=== PATIENT | female | born 2000 | race Caucasian/White ===

== ENCOUNTER 2019-01-01 12:52 | Observation (INO) ==
[2019-01-01] MEDS ORDERED: SALINE LOCK IV FLUID XX ONE (13:35)
[2019-01-01] MEDS ORDERED: ZOFRAN IV PRN (13:35)
[2019-01-01] MEDS ORDERED: TYLENOL PO PRN (13:35)
[2019-01-01] MEDS ORDERED: CHLORASEPTIC SPRAY MT PRN (13:46)
[2019-01-01] MEDS: NS + KCL 20 MEQ 1,000 ML IV SCH (15:19)
[2019-01-01] MEDS: ROCEPHIN 1 GM in NS 50 ML IV SCH (15:19)
[2019-01-01] MEDS: NORCO-5 PO PRN ×2 (16:36→20:38)
--- NOTE | 2019-01-01 22:51 | HISTORY AND PHYSICAL ---
CHIEF COMPLAINT: Nausea, vomiting and sore throat. HISTORY OF PRESENT ILLNESS: The patient is an 17-year-old white female followed in my medical practice who comes in with a 3-day history of severe sore throat, increasing over this past 72 hours. She has had body aches, fever, and over the past 18 to 24 hours developed pronounced nausea and vomiting. She was seen in the office yesterday, and rapid strep was negative and white count was 18,000 with a left shift and mono screen was negative and last evening we called in Keflex at 500 mg p.o. q.6 hours. She says she has taken 3 of those pills, and it started again yesterday evening. Throat culture is in progress, and I have spoken with the watch technician, and it is not growing out group A strep but growing out hemolytic strep consistent with Strep pyogenes, but patient is having pronounced worsening sore throat, nausea and vomiting and prostration. MEDICATIONS PRIOR TO ADMISSION: Keflex. ALLERGIES: Penicillin. PAST MEDICAL HISTORY: Mild obesity with prior history of treatment with Adipex at low dose. PAST SURGICAL HISTORY: Negative. FAMILY HISTORY: Notable for breast cancer in her mother with negative BRCA testing in the mother. Mother had breast cancer at age 28. Otherwise, family history negative. SOCIAL HISTORY: The patient lives in [place]. Parents are . She is a nonsmoker, nondrinker. REVIEW OF SYSTEMS: Negative except as above. PHYSICAL EXAMINATION: VITAL SIGNS: Weight 138, which is stable. Height 4 foot 10 inches, pulse 130, BMI 30, temperature 100.3 degrees orally. GENERAL: Young white female in moderate distress with sore throat. SKIN: No rashes. HEENT: NC/AT. PERRL. EOMI. Sclerae clear. TMs normal. OP: Tonsils 3+ with pronounced white exudate bilateral tonsil. NECK: No major cervical LA. No TMG. CARDIOVASCULAR: RRR without murmur. LUNGS: CTA. ABDOMEN: Soft, protuberant. No mass or organomegaly. No rebound or guarding. EXTREMITIES: No edema. BREASTS/PELVIC/RECTAL: Deferred. NEUROLOGIC: Cranial nerves 2 through 12 are intact. LABORATORY DATA: White count was repeated today and shows elevation in white count from 18,000 yesterday to 26,000 today with again left shift. [place] screen again negative. EBV titer and CMV titer were obtained, results pending. CMP largely unremarkable. ASSESSMENT: 1. Pharyngitis severe with probable Streptococcus pyogenes. 2. Nausea and vomiting. 3. Pronounced leukocytosis. PLAN: At this point as she looks quite ill, we will admit the patient for 23-hour observation, hydrate her well with normal saline with potassium supplementation. We will give her Chloraseptic, Tylenol and Dysart for pain, start her on IV Rocephin 1 g IV q.12 hours. Blood cultures x2 will be obtained prior to administration of this antibiotic, and we will monitor her leukocytosis. If that seems to be coming down with the antibiotic treatment, we will likely proceed with some low-dose steroids to see if that will help her throat with possible discharge as early as tomorrow. We will await the final results on the throat culture obtained through the office on 12/31/2018. cc: Ervin Acuña MD
[2019-01-02] MEDS: NS + KCL 20 MEQ 1,000 ML IV SCH ×4 (00:37→18:03)
[2019-01-02] MEDS: ROCEPHIN 1 GM in NS 50 ML IV SCH ×2 (01:30→13:11)
[2019-01-02] MEDS: NORCO-5 PO PRN (04:32)
[2019-01-02 08:14] LABS: BASO# 0.02 X1000 (0.0-0.2); BASO% 0.1 % (0.0-0.8); EOS# 0.01 X1000 (0.0-0.7); EOS% 0.1 % (0.0-10.0); HEMATOCRIT 40.5 % (37.0-47.0); HEMOGLOBIN 13.9 g/dL (12.0-16.0); IMM GRAN# 0.07 X1000 (0.0-0.04); IMM GRAN% 0.4 % (0.0-0.5); LYMPH% 13.3 % (20.5-51.1); MCH 28.9 PG (27-31); MCHC 34.3 g/dL (33-37); MCV 84.2 FL (81-99); MONO# 1.78 X1000 (0.11-0.59); MONO% 10.3 % (1.7-9.3); MPV 9.5 FL (7.4-10.4); NEUT# 13.14 X1000 (1.4-6.5); NEUT% 75.8 % (42.2-75.2); PLT 215 X1000 (130-400); RBC 4.81 XMIL (4.2-5.4); RDW 13.4 % (11.5-14.5); WBC 17.32 X1000 (4.8-10.8)
[2019-01-02 08:50] LABS: AGAP 11; BUN 3 mg/dL (8-22); CALCIUM 8.8 mg/dL (8.8-10.2); CHLORIDE 102 mmol/L (98-107); COSMO 272; CREATININE 0.4 mg/dL (0.5-0.9); ESTIMATED GFR > 60; GLUCOSE 88 mg/dL (70-104); POTASSIUM 3.8 mmol/L (3.5-5.1); SODIUM 138 mmol/L (136-145); TCO2 25 mmol/L (25-35)
[2019-01-02] MEDS: SOLU-MEDROL IV SCH ×2 (09:58→16:03)
[2019-01-02] MEDS ORDERED: MBX SOLUTION MT PRN (13:16)
[2019-01-02 19:32] VITALS: BP 142/90
--- NOTE | 2019-01-02 19:45 | PROGRESS NOTE ---
DATE: 01/02/2019 SUBJECTIVE: The patient is still not feeling well this morning, but today after receiving Solu- Medrol 60 mg IV q.8 hours she has begun to feel much better. Throat is better and she is able to swallow. She was able to eat [employer] for supper without difficulty. T-max was 99.8 degrees at midnight last night. She has been afebrile since then. OBJECTIVE: Vital signs stable. OP still quite red. Tonsils 3+. Slightly less exudate. Neck: No LA.CV: RRR. Lungs CTA. Abdomen nontender. Extremities: No edema, calf tenderness or cords. Neurologic: Cranial nerves 2-12 are intact. No focal deficits. LABORATORY DATA: White count today is down from a maximum of 26,000 to 17.3, hemoglobin 13.9, platelets 215,000. BMP is normal. CMV titer is negative. EBV titer shows evidence of old past infection. Nothing new/acute. Blood cultures x2 remain negative. Throat culture done through the office on 12/31 is negative after all. ASSESSMENT: 1. Pharyngitis, rule out bacterial versus viral. 2. Nausea and vomiting, resolved. 3. Pronounced leukocytosis, trending downward. PLAN: We had started the IV steroids and that seemed to help a great deal. We were hesitant to start that due to marked elevation in her white count and trend upward, but now that had come down, we were able to start it. We kept her on IV Rocephin 1 g q.12 hours. We will resume Keflex at home at 500 mg q.6 hours, and we will give her prednisone 40 mg daily for 5 days, [place] 5 for pain, Chloraseptic, Tylenol if required. Rest, fluids. Recheck in the office in a week. Discharge home. cc: Ervin Acuña MD
== END 2019-01-02 20:00 | disposition home or self-care (01) ==
LOC: DIRADM → 1N 12:52
PROVIDERS: ADMIT Family Medicine; ATTEND Family Medicine

== ENCOUNTER 2019-06-23 15:42 | Observation (INO) ==
[2019-06-23] MEDS ORDERED: SALINE LOCK IV FLUID XX ONE (15:46)
[2019-06-23] MEDS ORDERED: NS 500 ML IV ONE (15:53)
[2019-06-23] MEDS: TYLENOL PO PRN (17:05)
[2019-06-23] MEDS: ZOFRAN IV PRN ×2 (17:06→21:39)
[2019-06-23 18:32] LABS: BASO% 0.8 % (0.0-0.8); HEMATOCRIT 40.8 % (37.0-47.0); HEMOGLOBIN 13.6 g/dL (12.0-16.0); IMM GRAN# 0.11 X1000 (0.0-0.04); IMM GRAN% 0.5 % (0.0-0.5); LYMPH# 1.64 X1000 (1.2-3.4); LYMPH% 6.9 % (20.5-51.1); MCHC 33.3 g/dL (33-37); MONO# 2.12 X1000 (0.11-0.59); MONO% 8.9 % (1.7-9.3); MPV 9.4 FL (7.4-10.4); NEUT% 82.9 % (42.2-75.2); PLT 215 X1000 (130-400); RBC 4.86 XMIL (4.2-5.4); RDW 13.2 % (11.5-14.5); WBC 23.77 X1000 (4.8-10.8)
--- NOTE | 2019-06-23 18:46 | HISTORY AND PHYSICAL ---
CHIEF COMPLAINT: Nausea and vomiting. HPI: The patient is 18-year-old white female followed in my medical practice. She comes in with nausea and vomiting started late in the evening on 06/21/2019. She has had some body aches. Denies dysuria. No diarrhea. Has vomited about 10 times in all. She says she got a respite from her symptoms and yesterday felt pretty good and was able to "go out," she has had mild sore throat but she has had problems with chronic tonsillitis over the last year or 2 and has been followed by Dr. Maurer in that regard with plans for surgical tonsillectomy in the next few days. She denies any cough. She has had some abdominal soreness all across her abdomen low to mid aspect. She denies dysuria. MEDICATIONS PRIOR TO ADMISSION: Tylenol. ALLERGIES: Penicillin. PAST MEDICAL HISTORY: 1. Frequent tonsillitis/chronic tonsillitis. 2. Nummular eczema. PAST SURGICAL HISTORY: Negative. FAMILY HISTORY: Notable for breast cancer in her mother at age 28 with mother being BRAC negative. SOCIAL HISTORY: The patient lives in [place], she is single, does not smoke, does not drink. Has 1 sibling. ROS: As above. PHYSICAL EXAMINATION: Weight 151, height 4 feet 10 inches, temperature 103.1 degrees, BMI 30. GENERAL: Mildly obese white female holding an emesis basin is ill-appearing. SKIN: No rashes. HEENT: NCAT. PERRL. EOMI. Sclerae anicteric. OP tonsils 2 to 3+ with mild exudate right greater than left. TMs clear. NECK: No major cervical LA. No TMG. CV: RRR without murmur. LUNGS: CTA. BACK: No CVA tenderness. ABDOMEN: Soft, active bowel sounds, mild tenderness right lower quadrant and suprapubic area. Minimal left lower quadrant tenderness, no mass ,no organomegaly, no rebound or guarding. Breasts, pelvic, rectal deferred. EXTREMITIES: No calf tenderness, cords or edema. NEURO: Cranial nerves 2-12 are intact. No focal deficits. Influenza testing for A and B in the office negative. UA trace leukocytes, negative blood, negative nitrite, 100 of protein, negative glucose, small bilirubin, trace ketones, specific gravity 1.015, pH greater than 9. ASSESSMENT: 1. Nausea and vomiting. 2. Lower abdominal pain. 3. Chronic tonsillitis. PLAN: We will admit the patient, give her IV hydration with saline bolus, Zofran for nausea and vomiting, Tylenol as needed for fever. Check CT abdomen and pelvis without contrast now. Check extensive labs to include rapid strep and throat culture, Monospot, CBC with differential, CMP, amylase, lipase, serum test, blood cultures x2, will culture the urine. Await studies. cc: Ervin Acuña MD MTDD
[2019-06-23 18:53] LABS: AGAP 15; ALB/GLOB RATIO 1.2; ALBUMIN 3.7 g/dL (3.5-5.0); ALKALINE PHOSPHATASE 65 U/L (32-104); AMYLASE 45 U/L (20-200); BUN 6 mg/dL (8-22); CALCIUM 8.6 mg/dL (8.8-10.2); CHLORIDE 101 mmol/L (98-107); COSMO 268; CREATININE 0.6 mg/dL (0.5-0.9); ESTIMATED GFR > 60; GLUCOSE 97 mg/dL (70-104); GOT 15 U/L (10-30); GPT 14 U/L (10-36); LIPASE 9 U/L (13-60); POTASSIUM 3.7 mmol/L (3.5-5.1); SODIUM 135 mmol/L (136-145); TCO2 19 mmol/L (25-35); TOTAL BILIRUBIN 0.52 mg/dL (0.20-1.00); TOTAL PROTEIN 6.8 g/dL (6.3-8.3)
[2019-06-23 18:58] LABS: BANDS 1 % (0-1); LYMPHS 8 % (21-51); MONO 2 % (1-9); SEGS 89 % (42-75)
--- NOTE | 2019-06-23 20:30 | Diag Imaging Result Doc PS360 ---
EXAM: CT ABDOMEN/PELVIS W/O CONTRAST 06/23/2019 HISTORY: lower abd pain/vomiting TECHNIQUE: This exam was performed using automated exposure control, adjustment of mA or kV according to patient size, and/or use of iterative reconstruction technique. COMMENT: There is no evidence of acute disease in the visualized portion of the chest. There are bilateral small calyceal stones none of which exceed 3 mm in size. There is no evidence of hydronephrosis. The urinary bladder is not distended. There is no evidence of ureterolithiasis. There is no evidence of bowel obstruction. There is some ileocolic adenopathy with nodes is much as 11 mm in greatest dimension. The appendix is less than 6 mm in diameter. There is a large amount of stool in the rectum. There is no evidence of free fluid. The regional skeleton is intact. IMPRESSION: Bilateral nephrolithiasis without evidence of obstructive uropathy. The possibility of mesenteric adenitis cannot be excluded. Mild constipation. Electronically signed by Diaz Marx 06/23/2019 8:28 PM
[2019-06-23] MEDS ORDERED: ZOSYN 3.375 GM in NS 50 ML IV SCH (21:00)
[2019-06-23] MEDS ORDERED: LEVAQUIN 750 MG/D5W 750 MG/150 ML IVPB IV SCH (21:15)
[2019-06-23] MEDS ORDERED: FLAGYL 500 MG/NS 500 MG/100 ML IVPB IV SCH (21:15)
[2019-06-24] MEDS: FLAGYL 500 MG/NS 500 MG/100 ML IVPB IV SCH ×2 (00:25→10:23)
[2019-06-24] MEDS ORDERED: PHENERGAN PR PRN (02:33)
[2019-06-24 07:52] LABS: BASO# 0.04 X1000 (0.0-0.2); BASO% 0.2 % (0.0-0.8); HEMATOCRIT 40.4 % (37.0-47.0); HEMOGLOBIN 13.4 g/dL (12.0-16.0); IMM GRAN# 0.11 X1000 (0.0-0.04); IMM GRAN% 0.5 % (0.0-0.5); LYMPH# 1.58 X1000 (1.2-3.4); LYMPH% 7.9 % (20.5-51.1); MCH 27.9 PG (27-31); MCHC 33.2 g/dL (33-37); MCV 84.2 FL (81-99); MONO# 1.78 X1000 (0.11-0.59); MONO% 8.9 % (1.7-9.3); MPV 9.5 FL (7.4-10.4); NEUT# 16.55 X1000 (1.4-6.5); NEUT% 82.5 % (42.2-75.2); PLT 191 X1000 (130-400); RDW 13.2 % (11.5-14.5); WBC 20.06 X1000 (4.8-10.8)
[2019-06-24] MEDS ORDERED: DILAUDID IV PRN (08:34)
[2019-06-24] MEDS ORDERED: PHENERGAN IV PRN (08:34)
[2019-06-24] MEDS ORDERED: SODIUM CHLORIDE 0.9% INJ PRN (08:34)
--- NOTE | 2019-06-24 09:21 | PROGRESS NOTE ---
DATE: 06/24/2019 SUBJECTIVE: The patient had more nausea and vomiting overnight. She did have a small bowel movement. She has had minimal diffuse tenderness of the abdomen, not severe. She has had sore throat prominently. She denies dysuria. OBJECTIVE: T-max 102.8 degrees, T-current 99 degrees, pulse 99, respirations 14, blood pressure 106/57, O2 saturation room air 99%. HEENT: OP: Tonsils 2 to 3+ with prominent white exudate, right greater than left. Neck: Mild to moderate cervical LA, right greater than left. CV: RRR without murmur. Lungs: CTA. Back: No CVA tenderness. Abdomen: Soft. Active bowel sounds. No point tenderness today. No mass or organomegaly. No rebound or guarding. Extremities: No calf tenderness, cords or edema. Neurologic: Cranial nerves 2-12 are intact without focal deficits. White count was 23.7 on admission, has declined to 20, hemoglobin 13.4, platelet 191,000, neutrophils 82, lymphocytes 7.9, monocytes 8.9, eosinophils 0. Rapid strep negative. [place] screen negative. CMP unremarkable. Serum test negative. Amylase and lipase normal. Blood cultures, urine culture, throat culture in progress. CT abdomen and pelvis without contrast reveals bilateral nephrolithiasis with no evidence of ureterolithiasis. No obstructive uropathy. Possibility of mesenteric adenitis. Mild constipation. ASSESSMENT: 1. Fever with leukocytosis thought likely related to #2. 2. Recurrent tonsillitis with several episodes over the past few months, followed by Dr. Maurer outpatient with plans for tonsillectomy later in the next 2 weeks which had been noted. 3. Pyuria per urinalysis in the office. Urine culture pending. This was a clean-catch specimen. 4. Pronounced nausea and vomiting. PLAN: Continue antiemetics. Will switch over to Phenergan as that was more effective than the Zofran. We will add Dilaudid for pain in the tonsillar area. Continue antibiotics that were added last evening in the form of Levaquin and Flagyl as she is allergic to penicillin. We will ask Dr. Maurer to consult on the case. Follow her cultures and follow the patient clinically. cc: Ervin Acuña MD
[2019-06-24 09:53] LABS: BANDS 10 % (0-1); LYMPHS 4 % (21-51); MONO 6 % (1-9); SEGS 80 % (42-75)
[2019-06-24] MEDS: TYLENOL PO PRN (10:23)
[2019-06-24 16:02] VITALS: BP 112/75
--- NOTE | 2019-06-24 18:14 | PROGRESS NOTE ---
DATE: 06/24/2019 SUBJECTIVE: Patient is feeling much better. She has had some sore throat. No nausea and vomiting. She has been tolerating the clear liquids well without difficulty. She is sitting up in bed with her hair fixed and looks much better this afternoon. She had seen Dr. Maurer and I spoke with him in detail. Fever down markedly. Abdomen nontender. Urine culture, throat culture, blood cultures negative so far. She has not had any fever during the day. ASSESSMENT: Tonsillitis. PLAN: Dr. Maurer feels like this is a viral tonsillitis and to treat it symptomatically. We will give her [place] 5 at home for pain as needed. She is to follow up with Dr. Maurer or Dr. Vinson in the next 1 to 2 weeks. She already has outpatient planned tonsillectomy to be done in [address] Maurer assures us that she does not need antibiotics at this point in time. We will follow the cultures to fruition. She will call in 48 hours to our office to make sure she gets the word on the cultures of the blood, urine and throat. cc: Ervin Acuña MD
--- NOTE | 2019-06-24 20:06 | CONSULTATION ---
DATE OF CONSULTATION: 06/24/2019 HISTORY: I was asked to see this 18-year-old with history of recurrent tonsillitis, admitted with abdominal discomfort and odynophagia. She is scheduled for tonsillectomy in 2 weeks. She has had a negative rapid strep and negative mono on admission, pending blood cultures. White count on admission was 23,000. She was begun on levofloxacin IV. She states that she is better today, is tolerating p.o. There is very mild throat discomfort, but very manageable for her. PAST MEDICAL HISTORY: Reviewed. SOCIAL HISTORY: Reviewed. FAMILY HISTORY: Reviewed. REVIEW OF SYSTEMS: As noted. PHYSICAL EXAMINATION: Constitutional: Well developed, well nourished, no acute distress. Oral cavity and oropharynx: Mildly to moderately exudative tonsillitis. Tonsils are 3+. Airway excellent. Palate symmetric. No erythema or exudate extending beyond tonsillar tissue. Uvula midline. Floor of mouth benign. Neck: [place] upper jugular chain nodes bilaterally, otherwise normal. IMPRESSION: Acute exacerbation of chronic tonsillitis, apparent viral etiology. PLAN: Agree with supportive treatment, analgesics, hydration. May use saline gargles. At this point, she needs to resolve this viral tonsillitis, but she should be able to have her tonsillectomy in 2 weeks, which certainly seems indicated. Instructed the patient and family to call us if they have any questions or problems with tonsils prior to surgery. Available if needed. cc: MD Ervin Pandey MD
== END 2019-06-24 18:38 | disposition home or self-care (01) ==
LOC: DIRADM → 3N 15:42
PROVIDERS: ADMIT Family Medicine; ATTEND Family Medicine

== ENCOUNTER 2019-08-01 01:42 | Inpatient (IN) ==
[2019-08-01] MEDS ORDERED: NS 1,000 ML IV ONE ×2 (01:50→02:22)
--- NOTE | 2019-08-01 02:25 | PROVIDER DOCUMENTATION ---
HPI-EENT General - General Chief Complaint: Post Op Complaint Stated Complaint: TONSILS OUT 2WKS AGO; VOMITTING AND PASSING OUT Time Seen by Provider: 08/01/19 01:50 Source: patient, family Allergies/Adverse Reactions: Patient Allergies Allergy/AdvReac Type Severity Reaction Status Date / Time Penicillins Allergy Unknown Verified 03/03/17 20:08 - History of Present Illness-EENT General Nature of Presenting Problem: Patient is a 18 year old white female, S/P tonsillectomy by ENT doctor, Dr. Vinson, 2 weeks ago who now presents with hypotension after persistent bleeding from her throat for past 1 week. Patient now becomes light headed with standing. Denies fever. Patient passed tonight after vomiting blood. No active bleeding at this time. Patient arrives by POV with her father. EENT Location: reports: throat Onset/Duration: reports: 1 week ago Timing: reports: still present, intermittent Associated Symptoms: reports: other (bleeding) Locality of [place]: Home Review of Systems - Adult - REVIEW OF SYSTEMS - ADULT Constitutional: reports: fatique. denies: chills, fever Eyes: reports: no symptoms reported Ears, Nose, Mouth & Throat: reports: see HPI, other (throat bleeding) Cardiovascular: denies: chest pain Respiratory: denies: chronic cough, shortness of breath Gastrointestinal: denies: abdominal pain, nausea, vomiting Musculoskeletal: reports: no symptoms reported Integumentary: reports: no symptoms reported Neurological: reports: dizziness/vertigo Endocrine: reports: no symptoms reported Hematologic/Lymphatic: reports: see HPI Allergic/Immunologic: reports: no symptoms reported All Other Systems: Reviewed and Negative Past History - Adult - PAST MEDICAL HISTORY-ADULT Review of Records: reports: Old Records Reviewed, Nursing Assessment Review, Medications Reviewed, Social history reviewed & non-contributory. Major Childhood Illnesses: reports: denies history Cardiovascular: reports: denies history Respiratory: reports: denies history Gastrointestinal: reports: denies history Obstetrical/Gynecological: reports: denies history Genitourinary: reports: denies history Musculoskeletal: reports: denies history Neurological: reports: denies history Endocrine/Immune: reports: denies history Other Conditions: reports: denies history - PRIOR SURGERIES/PROCEDURES Surgical/Procedure History: reports: tonsillectomy - IMMUNIZATION STATUS Childhood Immunizations: See Nurse Assessment Flu Vaccine: See Nurse Assessment - FAMILY HISTORY Family History: reviewed, not pertinent - SOCIAL HISTORY Smoking: other (vapes) Substance Use: denies Alcohol Use Frequency: never Living Situation: family Physical Exam- EENT - Physical Exam EENT Initial Vital Signs Reviewed: Yes General Appearance: alert, anxious, other (generalized weakness) Eye Exam: bilateral eye: PERRL, EOMI Ear Exam: bilateral ear: auricle normal, canal normal Nasal Exam: normal inspection Throat Exam: tonsillar exudate, tonsillar swelling, other (no active bleeding) Neck: supple Respiratory: lungs clear Cardiovascular: regular rate, rhythm Abdominal Exam: normal bowel sounds, non tender, soft Extremity: normal range of motion, non-tender Integumentary: warm/dry, pallor Neurologic: grossly normal Psych/Mental Status: oriented x 3, anxious Progress - PLAN OF CARE/RESULTS Progress/Plan/Lab Results: Vital Signs - 8 hr 08/01/19 01:45 Temperature 97.7 F Pulse Rate 141 H Respiratory Rate 20 Blood Pressure 63/40 O2 Sat by Pulse Oximetry 100 Bedside Urine ED: Urine Bedside Start: 08/01/19 01:52 Freq: NOW Status: Cancelled Protocol: Activity Type Activity Date Activity User E-Sign Co-Sign Detail Recorded Client Recorded Date Recorded By Edit Status 08/01/19 02:34 [id number] Active=>Cancelled [id number] 08/01/19 02:34 [id number] Laboratory Results - last 24 hr 08/01/19 08/01/19 08/01/19 02:02 02:02 02:02 WBC 25.05 H RBC 3.38 L Hgb 9.5 L Hct 28.6 L MCV 84.6 MCH 28.1 MCHC 33.2 RDW Std Deviation 13.6 Plt Count 413 H MPV 9.3 Immature Gran % (Auto) 1.1 H Neut % (Auto) 85.6 H Lymph % (Auto) 9.6 L [place] % (Auto) 3.4 Eos % (Auto) 0.2 Baso % (Auto) 0.1 Immature Gran # (Auto) 0.27 H Neut # (Auto) 21.44 H Lymph # (Auto) 2.41 [place] # (Auto) 0.86 H Eos # (Auto) 0.05 Baso # (Auto) 0.02 PT INR PTT (Actin FS) Sodium 136 Potassium 3.6 Chloride 97 L Carbon Dioxide 24 L Anion Gap 15 BUN 11 Creatinine 0.6 Estimated GFR/1.73 m2 > 60 BUN/Creatinine Ratio 18 Glucose 169 H Calculated Osmolality 275 Calcium 8.8 Total Bilirubin Direct Bilirubin AST ALT Alkaline Phosphatase Total Protein Albumin Globulin Albumin/Globulin Ratio Plasma Lactate Serum , Qual NEGATIVE Urine Source Urine Color Urine Turbidity Urine pH Ur Specific [place] Urine Protein Ur Glucose (Stick) Ur Ketones (Stick) Urine Blood Urine Nitrite Urine Bilirubin Urobilinogen Dipstick Urine Leukocytes Urine WBC (Auto) Urine RBC (Auto) U Epithel Cells (Auto) Urine Bacteria (Auto) Blood Type Blood Type Confirm Antibody Screen Crossmatch 08/01/19 08/01/19 08/01/19 02:02 02:54 04:03 WBC RBC Hgb Hct MCV MCH MCHC RDW Std Deviation Plt Count MPV Immature Gran % (Auto) Neut % (Auto) Lymph % (Auto) [place] % (Auto) Eos % (Auto) Baso % (Auto) Immature Gran # (Auto) Neut # (Auto) Lymph # (Auto) [place] # (Auto) Eos # (Auto) Baso # (Auto) PT INR PTT (Actin FS) Sodium Potassium Chloride Carbon Dioxide Anion Gap BUN Creatinine Estimated GFR/1.73 m2 BUN/Creatinine Ratio Glucose Calculated Osmolality Calcium Total Bilirubin Direct Bilirubin AST ALT Alkaline Phosphatase Total Protein Albumin Globulin Albumin/Globulin Ratio Plasma Lactate 3.5 H Serum , Qual Urine Source CLEAN CATCH Urine Color STRAW Urine Turbidity CLEAR Urine pH 7.0 Ur Specific [place] 1.005 Urine Protein NEGATIVE Ur Glucose (Stick) NEGATIVE Ur Ketones (Stick) NEGATIVE Urine Blood NEGATIVE Urine Nitrite NEGATIVE Urine Bilirubin NEGATIVE Urobilinogen Dipstick NORMAL Urine Leukocytes NEGATIVE Urine WBC (Auto) <10 Urine RBC (Auto) <10 U Epithel Cells (Auto) <10 Urine Bacteria (Auto) NEGATIVE Blood Type A POSITIVE Blood Type Confirm Antibody Screen NEGATIVE Crossmatch See Detail 08/01/19 08/01/19 08/01/19 04:13 04:13 04:13 WBC RBC Hgb 7.1 L D Hct 21.5 L D MCV MCH MCHC RDW Std Deviation Plt Count MPV Immature Gran % (Auto) Neut % (Auto) Lymph % (Auto) [place] % (Auto) Eos % (Auto) Baso % (Auto) Immature Gran # (Auto) Neut # (Auto) Lymph # (Auto) [place] # (Auto) Eos # (Auto) Baso # (Auto) PT INR PTT (Actin FS) Sodium Potassium Chloride Carbon Dioxide Anion Gap BUN Creatinine Estimated GFR/1.73 m2 BUN/Creatinine Ratio Glucose Calculated Osmolality Calcium Total Bilirubin 0.18 L Direct Bilirubin < 0.10 AST 16 ALT 15 Alkaline Phosphatase 51 Total Protein 5.0 L Albumin 2.9 L Globulin 2.1 Albumin/Globulin Ratio 1.4 Plasma Lactate Serum , Qual Urine Source Urine Color Urine Turbidity Urine pH Ur Specific [place] Urine Protein Ur Glucose (Stick) Ur Ketones (Stick) Urine Blood Urine Nitrite Urine Bilirubin Urobilinogen Dipstick Urine Leukocytes Urine WBC (Auto) Urine RBC (Auto) U Epithel Cells (Auto) Urine Bacteria (Auto) Blood Type Blood Type Confirm A POSITIVE Antibody Screen Crossmatch 08/01/19 04:13 WBC RBC Hgb Hct MCV MCH MCHC RDW Std Deviation Plt Count MPV Immature Gran % (Auto) Neut % (Auto) Lymph % (Auto) [place] % (Auto) Eos % (Auto) Baso % (Auto) Immature Gran # (Auto) Neut # (Auto) Lymph # (Auto) [place] # (Auto) Eos # (Auto) Baso # (Auto) PT 16.3 H INR 1.28 PTT (Actin FS) 31.8 Sodium Potassium Chloride Carbon Dioxide Anion Gap BUN Creatinine Estimated GFR/1.73 m2 BUN/Creatinine Ratio Glucose Calculated Osmolality Calcium Total Bilirubin Direct Bilirubin AST ALT Alkaline Phosphatase Total Protein Albumin Globulin Albumin/Globulin Ratio Plasma Lactate Serum , Qual Urine Source Urine Color Urine Turbidity Urine pH Ur Specific [place] Urine Protein Ur Glucose (Stick) Ur Ketones (Stick) Urine Blood Urine Nitrite Urine Bilirubin Urobilinogen Dipstick Urine Leukocytes Urine WBC (Auto) Urine RBC (Auto) U Epithel Cells (Auto) Urine Bacteria (Auto) Blood Type Blood Type Confirm Antibody Screen Crossmatch Orders Category Date Time Status Admit - [facility] Routine AdmDCTranf 08/01/19 05:25 Active Activity - Strict Bedrest ORDERED Care 08/01/19 05:25 Active Aspiration Precautions DIRECTED Care 08/01/19 05:25 Active Elevate Head of Bed DIRECTED Care 08/01/19 05:25 Active NEWS Score >or=5:Order NEWS Bundle S.O. NOW Care 08/01/19 01:58 Active Nursing- MD Consult Request ROUTINE Care 08/01/19 05:25 Active Orthostatic Vital Signs NOW Care 08/01/19 01:51 Active Vital Signs Order Q 4-HR ASSESS Care 08/01/19 05:25 Active Physician/Provider Consults Routine Cons 08/01/19 07:00 Ordered NPO Diet 08/01/19 05:25 Active CHEST-PORTABLE [RAD] Stat Exams 08/01/19 02:35 Completed BLOOD CULTURE [BLDCUL] Stat Lab 08/01/19 02:54 Results BMP [BASIC METABOLIC PANEL] [CHEM] Stat Lab 08/01/19 02:02 Completed CBC WITH ELECTRONIC DIFF [HEME] Stat Lab 08/01/19 02:02 Completed HCG [ TEST-SERUM] [PREG] Stat Lab 08/01/19 02:02 Completed HGB AND HCT [HEME] Stat Lab 08/01/19 04:13 Completed LACTATE, PLASMA [CHEM] Lab 08/01/19 05:05 Uncollected LACTATE, PLASMA [CHEM] Lab 08/01/19 08:05 Uncollected LACTATE, PLASMA [CHEM] Stat Lab 08/01/19 02:02 Completed LFT [HEPATIC FUNCTION] [CHEM] Stat Lab 08/01/19 04:13 Completed PROTIME WITH INR [COAG] Stat Lab 08/01/19 04:13 Completed PTT [COAG] Stat Lab 08/01/19 04:13 Completed TYPE & SCREEN [BBK] Stat Lab 08/01/19 02:54 Completed URINE CULTURE [RM] Routine Lab 08/01/19 04:03 Received 0.9% Sodium Chloride Inj [Ns] 1,000 ml Med 08/01/19 01:50 Discontinued IV 999 mls/hr 0.9% Sodium Chloride Inj [Ns] 1,000 ml Med 08/01/19 02:22 Discontinued IV 999 mls/hr 0.9% Sodium Chloride Inj [Ns] 500 ml Med 08/01/19 02:36 Discontinued IV 999 mls/hr CefTRIAXONE [Rocephin] 1 gm Med 08/01/19 02:33 Discontinued 0.9% Sodium Chloride Inj [Ns] 50 ml IV NOW Oxygen Device Routine Oth 08/01/19 05:25 Active Telemetry [OM.EQ] Routine Oth 08/01/19 05:25 Active Transfer/Admit Order [TRANSFER] Routine Transfer 08/01/19 04:08 Completed Result Diagrams: 08/01/19 04:13 08/01/19 02:02 - REASSESSMENT Reassessment #1 Time Reassessed: 03:30 Status: improving Reassessment Comment: repeat bp=95/64, paged Dr. Vinson for admit - XRAY 1 XRAY Study: Chest XRAY Interpretation: NAD - CONSULTS/PCP/HOSPITALIST Notification #1 *Consult/PCP/Hospitalist*: Dr. Bernard, ENT operations research director for Dr. Vinson Time Discussed: 03:45 Reason/Comments: request admit to hospitalist #2 Consult: Dr. Hernandez, [facility] hospitalist [facility] [place] Time Discussed: 04:00 Consult Disposition: Admit Departure - Departure Date of Disposition Decision: 08/01/19 Time of Disposition Decision: 05:19 DIAGNOSIS: Post tonsillectomy secondary hemorrhage Hypotension Qualifiers: Hypotension type: unspecified hypotension type Qualified Code(s): I95.9 - Hypotension, unspecified Leukocytosis Qualifiers: Leukocytosis type: unspecified Qualified Code(s): D72.829 - Elevated white blood cell count, unspecified Anemia Qualifiers: Anemia type: other cause Other causes of anemia: acute posthemorrhagic Qualified Code(s): D62 - Acute posthemorrhagic anemia Disposition: ADMITTED INPATIENT 09 Certified Medical Emergency: Emergent Condition: Serious - Critical Care Note This patient required my direct & personal management of CC.: Yes Total Time (mins): 95 Critical Care Statement: This patient required my direct personal management to treat or rule out processes, the absence of which, could potentiallly result in sudden, clinically significant life or limb threatening deterioration. Attestation - Physician/ CONI Attestation Patient care was provided by Advanced Practice Provider:: No The physician spent face to face time with patient:: Yes Advanced Practice Provider documentation review:: Supervising physician onsite and consulted in the evaluation and care of this patient. The physician did have a face to face encounter with the patient.
[2019-08-01 02:27] LABS: BASO# 0.02 X1000 (0.0-0.2); BASO% 0.1 % (0.0-0.8); EOS# 0.05 X1000 (0.0-0.7); EOS% 0.2 % (0.0-10.0); HEMATOCRIT 28.6 % (37.0-47.0); HEMOGLOBIN 9.5 g/dL (12.0-16.0); IMM GRAN# 0.27 X1000 (0.0-0.04); IMM GRAN% 1.1 % (0.0-0.5); LYMPH# 2.41 X1000 (1.2-3.4); LYMPH% 9.6 % (20.5-51.1); MCH 28.1 PG (27-31); MCHC 33.2 g/dL (33-37); MCV 84.6 FL (81-99); MONO# 0.86 X1000 (0.11-0.59); MONO% 3.4 % (1.7-9.3); MPV 9.3 FL (7.4-10.4); NEUT# 21.44 X1000 (1.4-6.5); NEUT% 85.6 % (42.2-75.2); PLT 413 X1000 (130-400); RBC 3.38 XMIL (4.2-5.4); RDW 13.6 % (11.5-14.5); WBC 25.05 X1000 (4.8-10.8)
[2019-08-01] MEDS ORDERED: ROCEPHIN 1 GM in NS 50 ML IV ONE (02:33)
[2019-08-01] MEDS ORDERED: NS 500 ML IV ONE (02:36)
[2019-08-01 02:59] LABS: AGAP 15; BUN 11 mg/dL (8-22); CALCIUM 8.8 mg/dL (8.8-10.2); CHLORIDE 97 mmol/L (98-107); COSMO 275; CREATININE 0.6 mg/dL (0.5-0.9); ESTIMATED GFR > 60; GLUCOSE 169 mg/dL (70-104); POTASSIUM 3.6 mmol/L (3.5-5.1); SODIUM 136 mmol/L (136-145); TCO2 24 mmol/L (25-35)
[2019-08-01 04:44] LABS: INR 1.28; PROTIME 16.3 Seconds (11.0-16.0); PTT 31.8 Seconds (22.3-41.8)
[2019-08-01 04:46] LABS: HEMATOCRIT 21.5 % (37.0-47.0); HEMOGLOBIN 7.1 g/dL (12.0-16.0)
[2019-08-01 04:50] LABS: ALB/GLOB RATIO 1.4; ALBUMIN 2.9 g/dL (3.5-5.0); ALKALINE PHOSPHATASE 51 U/L (32-104); DIRECT BILIRUBIN < 0.10 mg/dL (0.00-0.20); GOT 16 U/L (10-30); GPT 15 U/L (10-36); TOTAL BILIRUBIN 0.18 mg/dL (0.20-1.00)
[2019-08-01] MEDS ORDERED: LEVOPHED 8 MG in D5 1/2 NS 250 ML IV SCH (05:25)
[2019-08-01] MEDS ORDERED: TYLENOL PR PRN (05:27)
[2019-08-01] MEDS ORDERED: ZOFRAN IV PRN (05:27)
[2019-08-01] MEDS ORDERED: VANCOMYCIN IV PER PHARMACY MISC SCH (05:30)
[2019-08-01 05:39] LABS: URINE SOURCE CLEAN CATCH
[2019-08-01] MEDS: MERREM 1 GM in NS 50 ML IV SCH ×3 (05:47→21:23)
--- NOTE | 2019-08-01 05:47 | Diag Imaging Result Doc PS360 ---
EXAM: CHEST-PORTABLE HISTORY: leukocytosis,hypotension TECHNIQUE: Single view COMPARISON: None. FINDINGS: The lungs are well expanded. The heart is not enlarged. The vessels are mildly distended. There are no infiltrates. No effusion identified. IMPRESSION: Mild vascular prominence, but no definite pneumonia. Follow-up PA and lateral recommended. Electronically signed by Farhan Sethi 08/01/2019 5:45 AM
[2019-08-01] MEDS: NS 1,000 ML IV SCH ×2 (05:48→12:33)
[2019-08-01 05:49] LABS: BILIRUBIN URINE NEGATIVE (NEGATIVE); BLOOD URINE NEGATIVE (NEGATIVE); COLOR STRAW; GLUCOSE URINE NEGATIVE (NEGATIVE); KETONE URINE NEGATIVE (NEGATIVE); LEUKOCYTES URINE NEGATIVE (NEGATIVE); NITRITE URINE NEGATIVE (NEGATIVE); PROTEIN URINE NEGATIVE (NEGATIVE); SP GRAVITY URINE 1.005; TURBIDITY URINE CLEAR (CLEAR); UROBILINOGEN URINE NORMAL (NORMAL)
[2019-08-01 05:50] LABS: UR EPITHELIAL CELLS <10 /HPF (<10); URINE BACTERIA NEGATIVE /HPF; URINE RBC <10 /HPF (<10); URINE WBC <10 /HPF (<10)
[2019-08-01] MEDS ORDERED: VANCOMYCIN 1,600 MG in NS 250 ML IV ONE (06:00)
[2019-08-01] MEDS ORDERED: ZEMURON ONE (06:21)
[2019-08-01] MEDS ORDERED: ROBINUL ONE (06:21)
[2019-08-01] MEDS ORDERED: QUELICIN (DOSE) ONE (06:21)
[2019-08-01] MEDS ORDERED: ZOFRAN ONE (06:21)
[2019-08-01] MEDS ORDERED: DECADRON ONE (06:21)
[2019-08-01] MEDS ORDERED: XYLOCAINE-MPF 2% ONE (06:21)
[2019-08-01] MEDS ORDERED: DIPRIVAN 1% ONE (06:25)
[2019-08-01] MEDS ORDERED: SODIUM CHLORIDE 0.9% 10 ML ONE (06:29)
[2019-08-01] MEDS ORDERED: MORPHINE ONE (06:29)
--- NOTE | 2019-08-01 06:30 | PROGRESS NOTE ---
DATE: 08/01/2019 A 18-year-old who was admitted for postop tonsillectomy bleed. She was admitted through the ER hypertensive with hematocrit of 28 [place] [address]. She has been hydrated. She has a subsequent hematocrit of 21. She has had bleeding on and off for almost a week. According to her at times, it is brisk. She will cough up a blood clot and then have brisk bleeding and then it will stop. PHYSICAL EXAM: Oral cavity, oropharynx, there was a large clot in the left tonsillar fossa. IMPRESSION: Postop tonsillectomy bleed. She is now hemodynamically stable, but her hematocrit is diluted to 21. She has had what sounds like significant bleeding off and on for the past week. She has a clot in the left tonsillar fossa. We discussed continuing to monitor, but with her past history and her current hematocrit and hypotension, if there is further bleeding and current blood levels, it seems best to go back to the OR, remove the clot and try to find the offending bleeding area and cauterize it. We did discuss with her and her dad. After discussion, we decided this is the best course of action at this time. cc: MD Ervin Mitchell MD
--- NOTE | 2019-08-01 07:57 | HISTORY AND PHYSICAL ---
PRIMARY CARE PROVIDER: Ervin Acuña MD DATE AND TIME: 08/01/2019 at 0415. CHIEF COMPLAINT: Syncope, vomiting blood, and postoperative tonsillectomy. HISTORY OF PRESENT ILLNESS: Ms. Armstrong is a 18-year-old female who was brought into the ER tonight after having a syncopal episode after vomiting blood. The patient's father at bedside reports that on 07/18/2019, exactly 2 weeks ago from today, that the patient did undergo a tonsillectomy with Dr. Vinson. He did report that 1 week ago, on 07/25/2019, that the patient did come into the ER for similar complaints of vomiting blood. She was treated and discharged home. He stated over the next few days she had done pretty well, but the patient states starting 2 days ago, on 07/30/2019, that she did begin vomiting some blood. She states at first this was just a little bit, though yesterday evening, which would be 07/31/2019, she actually was driving home in her car, began to vomit, pulled over at a [employer], had a vomiting episode where she vomited up for what she describes a large amount of blood. She was able to drive herself home, got home in her garage, and did have another vomiting episode and did have 2 syncopal episodes prior to coming to the ER. Upon arrival, the patient's vital signs were temperature 97.7 degrees, heart rate 141, respirations 20, blood pressure was 63/40 with a MAP of 48, and oxygen saturation was 100% on room air. Hemoglobin was 9.5, hematocrit 28.6. Previously, also on her previous ER visit, on 07/25/2019, her hemoglobin was 14.4 and her hematocrit was 28.6. She also did have leukocytosis noted with a white blood cell count of 25,000. This was previously 13,000 on her previous ER visit. The patient denies any fever or body aches, though she has reported chills. Plasma lactate was 3.5. Serum was negative. In the ER, they did fluid resuscitate her with a total of 2500 mL normal saline. The patient's blood pressure did improve, though is still maintaining in the 80s systolically with MAPS that are 60 to 65. We did repeat hemoglobin and hematocrit, and it has since dropped some as well, now with a hemoglobin of 7.1 and hematocrit of 21.5. We are going to transfuse 1 unit of packed red blood cells. The patient will be placed in the ICU for close monitoring. She denies any headache, shortness of breath, chest pain. She is reporting that she has been coughing and does feel like she is constantly having to swallow. She is reporting hematemesis as previously mentioned. At this time, she was not reporting any nausea. She denies any abdominal pain, diarrhea, hematochezia or melena. She also denied any dysuria, hematuria. She denied any vaginal bleeding. She denied any pain, numbness, tingling or swelling in extremities. Upon my evaluation, I did assess the patient's posterior pharynx. I did not see any blood or blood clots present. Dr. Dumont did initially speak with Dr. Bernard, he is infusion nurse for Dr. Vinson this evening. This is when he was notified of the patient's condition and her admission. Though given the patient's continued hypotension after fluid resuscitation and her drop in her hemoglobin and hematocrit, I did contact Dr. Bernard and have spoken with him again and did update him on the patient's current status. I did notify him that she was going to be placed in the ICU and was going to receive transfusion of 1 unit packed red blood cells, maintenance IV fluids, and Levophed if needed for blood pressure support. He did state that he is going to come in and evaluate the patient. REVIEW OF SYSTEMS: A 14-point review of systems was conducted with the patient and all were negative except for pertinent positives mentioned in above HPI. PAST MEDICAL HISTORY: The patient has no known medical problems. PAST SURGICAL HISTORY: 1. Adenoidectomy. 2. Tonsillectomy performed by Dr. Vinson on 07/18/2019. SOCIAL HISTORY: The patient has no known past or present history of tobacco, alcohol, or illicit drug use. Her father was present at bedside during the time of my examination. FAMILY MEDICAL HISTORY: The patient's mother has a history of breast cancer. Patient's father has a history of diabetes mellitus type 2. ALLERGIES: Patient has a reported allergy to penicillin, though the exact reaction is unknown. This reaction was when she was a younger child. HOME MEDICATIONS: Oxycodone 5 mg per 5 mL oral solution as directed p.r.n. for pain. DIAGNOSTIC DATA/LABORATORY RESULTS: White blood cell count is 25,050, hemoglobin initial 9.5 with a repeat of 7.1, hematocrit initial 28.6 with a repeat of 21.5, platelet count is 413,000. PT 16.3, INR 1.2, PTT is 31.8. Sodium 136, potassium 3.6, chloride 97, serum bicarbonate is 24, BUN 11, creatinine 0.6, with a GFR of greater than 60. Glucose 169, calcium 8.8. Liver function tests are within normal limits. Plasma lactate 3.5. Serum was negative. One view chest x-ray showed no cardiac silhouette enlargement. No infiltrates or mass. No pneumothorax or significant effusion. No acute pathology. This is per Radiology. Pending diagnostic studies at this time are urinalysis and EKG. PHYSICAL EXAMINATION: VITAL SIGNS: Temperature 97.7 degrees, heart rate 114, respirations 18, blood pressure is 80/44 with a MAP of 66, oxygen saturation is 99%. GENERAL: Ms. Armstrong is a pleasant 18-year-old female. She was resting in the ER stretcher with her eyes closed though was easily arousable by verbal calling of her name and very light tactile stimulation by tapping her shoulder. Once awoken, she was alert and oriented to person, place, time, and situation. HEENT: Head is atraumatic, normocephalic. Pupils are equal, round, reactive to light, were 3 mm bilaterally and brisk. Subconjunctivae were slightly pale. Oral mucosa was moist. Oropharynx was clear. On evaluation of posterior pharynx, she did not have any blood or blood clots noted. CARDIOVASCULAR: Patient has S1 and S2 present. No murmurs, gallops, rubs appreciated. She does have a tachycardic rate that is regular. PULMONARY: Patient has symmetrical chest expansion bilaterally. Lung sounds are clear to auscultation in bilateral full mondragon. ABDOMEN: Soft, nontender, nondistended. Bowel sounds are present, and all 4 quadrants, were normoactive. EXTREMITIES: No cyanosis or edema noted. Pulse, motor, and sensory are intact in all extremities. Radial and pedal pulses were 2+ bilaterally. INTEGUMENTARY: The patient's skin color is slightly pale, dry, and intact. NEUROLOGICAL: The patient is drowsy, though drowsy she was sleeping upon my arrival in the room, though as previously mentioned, she was easily arousable by verbal calling of her name and very light tactile stimulation by tapping her shoulder. Once awoken, she was alert and oriented x4. She was able to answer questions appropriately and follow commands. She is able to move all extremities. There were no focal neurological deficits noted. ASSESSMENT: 1. Post tonsillectomy hemorrhage. 2. Symptomatic anemia. 3. Hypotension. 4. Leukocytosis. PLAN: The patient has been placed in the ICU for close monitoring. She will be on continuous cardiac telemetry and pulse oximetry with vital signs per ICU protocol. She will be n.p.o. We will implement aspiration precautions as well. She has been fluid resuscitated with 2500 mL normal saline, though she still is remaining borderline hypotensive, and her hemoglobin and hematocrit did drop upon recheck. We are going to go ahead and transfuse with 1 unit of packed red blood cells. We will place Levophed if needed for blood pressure support. We have continued IV normal saline 125 mL/hour. We will continue with serial hemoglobin hematocrit for close monitoring and need for further transfusions. She does have leukocytosis noted, though this could be reactive given her vomiting episodes, though we do need to consider possible sepsis as well. She has been fluid resuscitated as previously mentioned. We did obtain blood cultures and have ordered a urine culture. We have placed her with antibiotic coverage of vancomycin and meropenem. We have placed a consult with Dr. Bernard who is covering for Dr. Vinson, ENT. I have spoken with him on the phone and updated him on the patient's current condition. He is going to come evaluate the patient. Further orders and recommendations pending hospital course, diagnostic studies, and physician evaluation. Dictated by MARIO Elkins for Kalyan Flynn MD cc: MD Ervin Nelson MD [facility]ITALAlma
[2019-08-01 08:32] LABS: HEMATOCRIT 24.8 % (37.0-47.0)
--- NOTE | 2019-08-01 09:24 | EKG Report ---
Test Performed on : 08/01/2019 08:59:16 AM Test Reason : Sycope,Hypotension Blood Pressure : / mmHG Vent. Rate : 093 BPM Atrial Rate : 093 BPM P-R Int : 162 ms QRS Dur : 076 ms QT Int : 370 ms P-R-T Axes : 065 -07 010 degrees QTc Int : 460 ms Sinus rhythm. with premature ventricular complexes. or fusion complexes Otherwise normal ECG No previous ECGs available Confirmed by Darinel Estrada MD ([id number]) on 08/02/2019 10:56:45 AM
[2019-08-01 11:40] LABS: HEMATOCRIT 26.6 % (37.0-47.0); HEMOGLOBIN 8.6 g/dL (12.0-16.0)
--- NOTE | 2019-08-01 13:19 | OPERATIVE NOTE ---
PROCEDURE DATE: POSTOPERATIVE DIAGNOSIS: Postoperative tonsillectomy bleed. POSTOPERATIVE DIAGNOSIS: Postoperative tonsillectomy bleed. PROCEDURE: Cauterization of postoperative tonsillectomy bleed. SURGEON: Mao Bernard MD. ANESTHESIA: General endotracheal. INDICATIONS: This patient is a 18-year-old with above problems, refractory to medical therapy. DESCRIPTION OF PROCEDURE: The patient was brought to the operating room, placed supine on the operating table. Satisfactory general endotracheal anesthesia was administered. The patient was prepped and draped in usual manner for tonsillectomy. The Errol-Speedy mouth gag was inserted and positioned from the Peridot stand. The tonsils were exposed in the usual manner for cauterization of postoperative tonsillectomy bleed. The area was examined. The right side was noted to be normal. The left side had a large clot. This clot was removed inferiorly and arterial bleed was uncovered and cauterized in the usual manner. Irrigation was performed and the operative site was noted to be dry. The stomach was evacuated of content. There was no significant blood in the stomach. The retractors were removed. This completed what we felt was a successful procedure. The patient was awakened from anesthesia and taken to the recovery room in satisfactory condition. cc: MD Ervin Mitchell MD
--- NOTE | 2019-08-01 13:53 | PROGRESS NOTE ---
DATE: 08/01/2019 SUBJECTIVE: The patient was seen in the ICU and chart reviewed, and discussed the history with the patient and her family. The patient had a post-tonsillectomy bleed, now status post surgical correction per Dr. Bernard early this morning. She is doing well now, and blood pressure is up. After she had lost quite a bit of blood, she became hypotensive and syncopal. She has received vigorous IV resuscitation and received 1 unit of PRBCs transfusion. Her hemoglobin has come up now from 7 to 8.6. She is sitting up in the bed in the ICU and eating. I had spoken with [*] in detail as well. Discussed with patient and her mother regarding any prior history of bleeding tendencies, and there is no history of this at all. OBJECTIVE: Vital Signs: Afebrile, pulse 92, respirations 18, blood pressure 94/56, O2 saturation on room air 98%. Well-appearing currently, slightly pale. CV: Regular rate and rhythm. No murmurs. Lungs: Clear to auscultation. Back: No CVA tenderness. Abdomen: Nontender. Extremities: No calf tenderness, cords or edema. Neurologic: Nonfocal. Cranial nerves intact. The patient denies any dysuria. Denies any recent cough. LABS AND IMAGING: Reviewed chest x-ray, which was negative. Again, hemoglobin has risen to 8.6 after a beatrice of 7.1, after receiving 1 unit of PRBCs transfused. PT/PTT normal. CMP normal except protein 5, albumin 2.9, glucose 169. Plasma lactate was elevated this morning at 2 o'clock at 3.5, but has come down to 0.6 twice now during the morning. Urinalysis is negative, and serum test negative. ASSESSMENT: 1. Post tonsillectomy hemorrhage, now improved status post surgical correction per Dr. Bernard. 2. Hypotension related to number 3. 3. Acute blood loss anemia from number 1, requiring 1 unit of PRBCs transfused. 4. Leukocytosis thought reactive. PLAN: Will transfer out of the ICU to telemetry bed and monitor her overnight and allow her to ambulate. She is eating. Will make sure she does not rebleed. If she ambulates well and her white count has decreased in the morning with stabilization of the hemoglobin, we will plan on discharge in the morning. We will leave her on meropenem and vancomycin currently and likely send her home on a brief course of antibiotics orally tomorrow morning. cc: Ervin Acuña MD
[2019-08-01] MEDS ORDERED: VANCOMYCIN 1,300 MG in NS 250 ML IV SCH (18:00)
[2019-08-01] MEDS: PHENERGAN WITH CODEINE LIQUID PO PRN (22:03)
[2019-08-02] MEDS: MERREM 1 GM in NS 50 ML IV SCH (04:50)
[2019-08-02] MEDS: PHENERGAN WITH CODEINE LIQUID PO PRN ×3 (05:23→13:52)
[2019-08-02 08:05] LABS: BASO# 0.02 X1000 (0.0-0.2); BASO% 0.3 % (0.0-0.8); EOS# 0.09 X1000 (0.0-0.7); EOS% 1.1 % (0.0-10.0); HEMOGLOBIN 7.4 g/dL (12.0-16.0); IMM GRAN# 0.08 X1000 (0.0-0.04); LYMPH# 2.44 X1000 (1.2-3.4); LYMPH% 31.2 % (20.5-51.1); MCH 27.7 PG (27-31); MCHC 32.2 g/dL (33-37); MCV 86.1 FL (81-99); MONO# 0.74 X1000 (0.11-0.59); MONO% 9.5 % (1.7-9.3); MPV 9.5 FL (7.4-10.4); NEUT# 4.46 X1000 (1.4-6.5); NEUT% 56.9 % (42.2-75.2); PLT 276 X1000 (130-400); RBC 2.67 XMIL (4.2-5.4); RDW 14.2 % (11.5-14.5); WBC 7.83 X1000 (4.8-10.8)
[2019-08-02 08:27] LABS: AGAP 9; BUN 5 mg/dL (8-22); CALCIUM 8.1 mg/dL (8.8-10.2); CHLORIDE 107 mmol/L (98-107); COSMO 279; CREATININE 0.4 mg/dL (0.5-0.9); ESTIMATED GFR > 60; GLUCOSE 106 mg/dL (70-104); POTASSIUM 3.5 mmol/L (3.5-5.1); SODIUM 141 mmol/L (136-145); TCO2 25 mmol/L (25-35)
--- NOTE | 2019-08-02 10:37 | PROGRESS NOTE ---
DATE: 08/02/2019 SUBJECTIVE: The patient is status post tonsillectomy bleed. She had operative repair per Dr. Bernard yesterday morning. She has had no further bleeding since that time. She has been ambulatory. No dizziness has been present. She did get strangled slightly on some water yesterday morning. She has had a mild cough. She did have some low blood pressures in the 80s during the nurse educator hours, and hemoglobin is 7.4 this morning after [*]after 1 unit PRBC transfused yesterday. OBJECTIVE: Vital Signs: Afebrile, pulse 87, respirations 16, blood pressure 96/45, O2 saturation room air 100%. Cardiovascular: RRR without murmur. Lungs: CTA. Abdomen: Nontender. Extremities: No calf tenderness, cords, or edema. Neurologic: Cranial nerves are intact. LABORATORY: White count 7.8, hemoglobin 7.4, platelets 276,000, neutrophils 56, lymphocytes 31. BMP is normal. ASSESSMENT: 1. Status post, post tonsillectomy hemorrhage improved after surgical correction per Dr. Bernard yesterday morning. 2. Hypotension, improved. 3. Acute blood loss anemia receiving 1 unit of packed red blood cells transfused yesterday. 4. Leukocytosis, reactive, now normalized. 5. Mild cough. PLAN: I spoke with her and her father in detail. As she had some systolics in the 80s and she has little reserve if she were to have another bleed, I would prefer to give her 1 more unit PRBCs transfused and they are in agreement, so we will do that now and then discharge her home. She will take iron sulfate 325 mg p.o. b.i.d. and Robitussin DM p.r.n. cough. She has some pain medication at home from Dr. Vinson, ENT, and she will use at if required. I am not going to discharge her on any antibiotics as her white count has normalized and this appeared to be reactive only. She has had no fever. No signs of infection. She will use Robitussin DM as needed for cough. She will follow up with me in 7 to 10 days, with Dr. Vinson within a week. Plan on outpatient CBC in 10 days when she sees me. cc: Ervin Acuña MD
[2019-08-02] MEDS ORDERED: NS 500 ML IV SCH (12:00)
[2019-08-02 14:23] VITALS: BP 100/54
== END 2019-08-02 14:41 | disposition home or self-care (01) | DRG 920 ==
LOC: ED 01:42 → ICU 04:34 → SUATTDRO 04:34 → 4N 16:48
PROVIDERS: ADMIT Family Medicine; ATTEND Family Medicine